=== PATIENT | female | born 1990 | race Caucasian/White ===

== ENCOUNTER 2016-10-28 10:34 | Emergency (ER) | payer OTHER ==
[2016-10-28] MEDS ORDERED: SODIUM CHLORIDE 0.9% 1,000 ML ONE (11:19)
[2016-10-28] MEDS ORDERED: DIPHENHYDRAMINE 50 MG/ML VIAL ONE (11:19)
== END 2016-10-28 12:46 | disposition home or self-care (01) ==
LOC: ER 10:34
DX: G44.219 Episodic tension-type headache, not intractable (principal)
CPT/HCPCS: 36415; 80053; 81003; 84702; 85025; 86901; 96361; 96374